=== PATIENT | female | born 1955 | race Caucasian/White ===

== ENCOUNTER 2016-11-12 22:26 | Inpatient (IN) ==
--- NOTE | 2016-11-12 23:56 | Emergency Department Note ---
Disposition Clinical Impression: GIB (gastrointestinal bleeding) Disposition: Admitted As Inpatient Condition: Good General Adult HPI - General Chief complaint: ED Nausea/Vomiting/Diarrhea Stated complaint: vomiting blood, bloody diarrhea Time Seen by Provider: 11/12/16 23:12 Source: patient Limitations: no limitations - History of Present Illness Pain Scale: 0 - Related Data Allergies Allergy/AdvReac Type Severity Reaction Status Date / Time No Known Allergies Allergy Verified 11/12/16 22:32 Past Medical History - Past Medical History Medical history: Reports: no medical history Psychiatric history: Reports: no psych history - Social History Smoking Status: Never smoker Smokeless Tobacco Status: No Alcohol use: Reports: none Drug use: Reports: none Physical Exam - General Limitations: no limitations General appearance: alert, in no apparent distress Course Vital Signs Temperature 0 F L 11/12/16 22:33 Pulse Rate 91 11/12/16 22:33 Respiratory Rate 16 11/12/16 22:33 Blood Pressure 125/71 11/12/16 22:33 O2 Sat by Pulse Oximetry 98 11/12/16 22:33 Temperature 97.8 F 11/13/16 04:19 Pulse Rate 87 11/13/16 04:19 Respiratory Rate 16 11/13/16 04:19 Blood Pressure 111/62 11/13/16 04:19 O2 Sat by Pulse Oximetry 96 11/13/16 04:46 Oxygen Delivery Oxygen Delivery Room Air Medical Decision Making - Lab Data Result diagrams: 11/13/16 05:25 11/13/16 00:04 Lab Results 11/13/16 11/13/16 11/13/16 Range/Units 00:04 00:04 00:04 WBC 8.4 (4.3-11.1) K/mcL RBC 5.66 H (3.82-4.97) M/mcL Hgb 14.7 (11.5-15.4) g/dL Hct 45.0 H (35.3-44.9) % MCV 79.5 L (83.0-100.0) fL MCH 26.0 L (28.0-33.3) pg MCHC 32.7 (31.6-35.5) g/dL RDW 15.3 H (11.5-14.5) % Plt Count 210 (140-400) K/mcL MPV 10.4 (9.4-12.4) fL Immature Gran % 0.2 (0-4) % Seg Neutrophils % 90.7 % Lymphocytes % 3.8 % Monocytes % 3.5 % Eosinophils % 1.7 % Basophils % 0.1 % Neutrophils # 7.6 (1.6-8.9) K/mcL Lymphocytes # 0.3 L (0.6-4.6) K/mcL Monocytes # 0.3 (0.0-1.3) K/mcL Eosinophils # 0.1 (0.0-0.6) K/mcL Basophils # 0.0 (0.0-0.2) K/mcL Immature Plt Fraction 2.6 (1.1-6.1) % PT 11.7 (9.4-12.1) Seconds INR 1.1 APTT 26.6 (26.0-36.0) Seconds Sodium 143 (136-145) mEq/L Potassium 4.0 (3.5-4.5) mEq/L Chloride 110 H (98-109) mEq/L Carbon Dioxide 22 (19-29) mEq/L BUN 20 (7-20) mg/dL Creatinine 0.75 (0.57-1.11) mg/dL Est GFR ( Amer) > 60 (> 60) Est GFR (Non-Af Amer) > 60 (> 60) BUN/Creatinine Ratio 27 H (6-26) Glucose 145 H (70-99) mg/dL Calculated Osmolality 301 H (280-300) Calcium 9.1 (8.6-10.8) mg/dL Troponin I (0-0.03) ng/mL Blood Type Antibody Screen 11/13/16 11/13/16 Range/Units 00:04 00:04 WBC (4.3-11.1) K/mcL RBC (3.82-4.97) M/mcL Hgb (11.5-15.4) g/dL Hct (35.3-44.9) % MCV (83.0-100.0) fL MCH (28.0-33.3) pg MCHC (31.6-35.5) g/dL RDW (11.5-14.5) % Plt Count (140-400) K/mcL MPV (9.4-12.4) fL Immature Gran % (0-4) % Seg Neutrophils % % Lymphocytes % % Monocytes % % Eosinophils % % Basophils % % Neutrophils # (1.6-8.9) K/mcL Lymphocytes # (0.6-4.6) K/mcL Monocytes # (0.0-1.3) K/mcL Eosinophils # (0.0-0.6) K/mcL Basophils # (0.0-0.2) K/mcL Immature Plt Fraction (1.1-6.1) % PT (9.4-12.1) Seconds INR APTT (26.0-36.0) Seconds Sodium (136-145) mEq/L Potassium (3.5-4.5) mEq/L Chloride (98-109) mEq/L Carbon Dioxide (19-29) mEq/L BUN (7-20) mg/dL Creatinine (0.57-1.11) mg/dL Est GFR ( Amer) (> 60) Est GFR (Non-Af Amer) (> 60) BUN/Creatinine Ratio (6-26) Glucose (70-99) mg/dL Calculated Osmolality (280-300) Calcium (8.6-10.8) mg/dL Troponin I 0.00 (0-0.03) ng/mL Blood Type O POSITIVE Antibody Screen NEGATIVE Attestation Statement - Attestation Attestation: I examined this patient and my medical decision-making was reviewed with the SIGNAL WIRER/PA/Advanced Practice Nurse/Resident Physician. I agree with the documented findings, disposition and treatment plan as described except to the extent set forth below. [id number] time provided She complains of nausea, vomiting, hematemesis. She appears pale on exam but in no acute distress. Patient seen and evaluated in conjunction with the resident physician
[2016-11-13 00:12] LABS: Basophils % 0.1 %; Eosinophils # 0.1 K/mcL (0.0-0.6); Eosinophils % 1.7 %; Hemoglobin 14.7 g/dL (11.5-15.4); Immature Granulocytes % 0.2 % (0-4); Immature Platelets 2.6 % (1.1-6.1); Lymphocytes # 0.3 K/mcL (0.6-4.6); Lymphocytes % 3.8 %; Mean Corpuscular HGB Conc 32.7 g/dL (31.6-35.5); Mean Corpuscular Volume 79.5 fL (83.0-100.0); Mean Platelet Volume 10.4 fL (9.4-12.4); Monocytes # 0.3 K/mcL (0.0-1.3); Monocytes % 3.5 %; Neutrophils # 7.6 K/mcL (1.6-8.9); Platelet Count 210 K/mcL (140-400); Red Blood Count 5.66 M/mcL (3.82-4.97); Red Cell Distribution Width 15.3 % (11.5-14.5); Segmented Neutrophils % 90.7 %
--- NOTE | 2016-11-13 00:17 | Emergency Department Note ---
Disposition Clinical Impression: GIB (gastrointestinal bleeding) Qualifiers: GI bleed type/associated pathology: unspecified gastrointestinal hemorrhage type Qualified Code(s): K92.2 - Gastrointestinal hemorrhage, unspecified Disposition: Admitted As Inpatient Condition: Good Referrals: NO,PCP [Non-Partnered Physician] - Forms: ED Satisfaction Letter Nausea/Vomiting/Diarrhea HPI - General Chief complaint: ED Nausea/Vomiting/Diarrhea Stated complaint: vomiting blood, bloody diarrhea Time Seen by Provider: 11/12/16 23:12 Source: patient Limitations: no limitations - History of Present Illness HPI Narrative: 61-year-old female who is otherwise healthy and takes a baby aspirin daily presents emergency Department with a chief complaint of hematemesis. She reports around 5 PM she felt nauseated, vomited 2 or 3 times and then she had 2 episodes of emesis with blood in it. She states in between events she has no nausea. She denies any pain any time. She also reports some thin stool that appears slightly red. No history of GI bleed in the past. No history of gallbladder disease. She does not drink alcohol. She takes no anticoagulants other than aspirin. Currently he states he feels well and has no pain. She denies any associated chest pain, diaphoresis or shortness of breath. Denies any cough. Denies any recent illness. Denies any recent injury. - Related Data Allergies Allergy/AdvReac Type Severity Reaction Status Date / Time No Known Allergies Allergy Verified 11/12/16 22:32 All systems ED: reviewed and negative except as stated. Constitutional: Denies: fever, chills Cardiovascular: Denies: chest pain, dyspnea on exertion Respiratory: Denies: cough, dyspnea Gastrointestinal: Reports: nausea, vomiting, hematochezia. Denies: abdominal pain, diarrhea Genitourinary: Denies: dysuria Musculoskeletal: Denies: back pain Integumentary: Denies: rash Neurological: Denies: headache, weakness, numbness Endocrine: Denies: fatigue Past Medical History - Past Medical History Medical history: Reports: no medical history Psychiatric history: Reports: no psych history - Social History Smoking Status: Never smoker Smokeless Tobacco Status: No Alcohol use: Reports: none Drug use: Reports: none Physical Exam General: Appears well, alert and oriented x 3 Cardiovascular: Regular rate and rhythm. S1, S2. No murmurs, rubs or gallops. Respiratory: Breath sounds clear bilaterally. No wheezing, rales or rhonchi. No resp distress Abdomen: Abdomen is completely soft without any areas of tenderness. There is no guarding, rebound or rigidity. No overlying bruising or signs of injury. Normal bowel sounds. No palpable organomegaly. Negative Hoffman's. No epigastric tenderness Eyes: Conjunctivae are clear without scleral icterus HENT: No blood in the oropharynx, No oral mucosal lesions. Moist mucous membranes Neuro: Alert and oriented 3, no motor sensory deficits Musculoskeletal: No joint tenderness or swelling Skin: No lesions. No diaphoresis. Normal turgor. Normal color Psych: Appropriate - General Limitations: no limitations General appearance: alert, in no apparent distress Course Course Narrative: Presents with hematemesis and blood per rectum. She denies any pain. On exam she has no pain with stable vital signs. She takes baby aspirin but no other medical problems or anticoagulants. Patient had a bowel movement in a hat and it was thick, bright red and heme positive. With her also having hematemesis my concern is for a brisk upper GI bleed. She is not anemic but my concern is this is acute in onset and her next hemoglobin will be lower. With concern for brisk upper GI bleed and do not feel that discharge home with gastroenterology follow-up is appropriate and patient will require serial hemoglobins, serial abdominal examinations and reevaluation. I discussed this with the on-call hospitalist, Dr. Chen who accept for admission. Vital Signs Temperature 0 F L 11/12/16 22:33 Pulse Rate 91 11/12/16 22:33 Respiratory Rate 16 11/12/16 22:33 Blood Pressure 125/71 11/12/16 22:33 O2 Sat by Pulse Oximetry 98 11/12/16 22:33 Temperature 0 F L 11/12/16 22:33 Pulse Rate 91 11/12/16 22:33 Respiratory Rate 16 11/12/16 22:33 Blood Pressure 125/71 11/12/16 22:33 O2 Sat by Pulse Oximetry 98 11/12/16 22:33 Oxygen Delivery Oxygen Delivery Room Air Nausea/Vomiting/Diarrhea - Lab Data Result diagrams: 11/13/16 00:04 11/13/16 00:04 Lab Results 11/13/16 11/13/16 11/13/16 Range/Units 00:04 00:04 00:04 WBC 8.4 (4.3-11.1) K/mcL RBC 5.66 H (3.82-4.97) M/mcL Hgb 14.7 (11.5-15.4) g/dL Hct 45.0 H (35.3-44.9) % MCV 79.5 L (83.0-100.0) fL MCH 26.0 L (28.0-33.3) pg MCHC 32.7 (31.6-35.5) g/dL RDW 15.3 H (11.5-14.5) % Plt Count 210 (140-400) K/mcL MPV 10.4 (9.4-12.4) fL Immature Gran % 0.2 (0-4) % Seg Neutrophils % 90.7 % Lymphocytes % 3.8 % Monocytes % 3.5 % Eosinophils % 1.7 % Basophils % 0.1 % Neutrophils # 7.6 (1.6-8.9) K/mcL Lymphocytes # 0.3 L (0.6-4.6) K/mcL Monocytes # 0.3 (0.0-1.3) K/mcL Eosinophils # 0.1 (0.0-0.6) K/mcL Basophils # 0.0 (0.0-0.2) K/mcL Immature Plt Fraction 2.6 (1.1-6.1) % PT 11.7 (9.4-12.1) Seconds INR 1.1 APTT 26.6 (26.0-36.0) Seconds Sodium 143 (136-145) mEq/L Potassium 4.0 (3.5-4.5) mEq/L Chloride 110 H (98-109) mEq/L Carbon Dioxide 22 (19-29) mEq/L BUN 20 (7-20) mg/dL Creatinine 0.75 (0.57-1.11) mg/dL Est GFR ( Amer) > 60 (> 60) Est GFR (Non-Af Amer) > 60 (> 60) BUN/Creatinine Ratio 27 H (6-26) Glucose 145 H (70-99) mg/dL Calculated Osmolality 301 H (280-300) Calcium 9.1 (8.6-10.8) mg/dL Troponin I (0-0.03) ng/mL Blood Type Antibody Screen 11/13/16 11/13/16 Range/Units 00:04 00:04 WBC (4.3-11.1) K/mcL RBC (3.82-4.97) M/mcL Hgb (11.5-15.4) g/dL Hct (35.3-44.9) % MCV (83.0-100.0) fL MCH (28.0-33.3) pg MCHC (31.6-35.5) g/dL RDW (11.5-14.5) % Plt Count (140-400) K/mcL MPV (9.4-12.4) fL Immature Gran % (0-4) % Seg Neutrophils % % Lymphocytes % % Monocytes % % Eosinophils % % Basophils % % Neutrophils # (1.6-8.9) K/mcL Lymphocytes # (0.6-4.6) K/mcL Monocytes # (0.0-1.3) K/mcL Eosinophils # (0.0-0.6) K/mcL Basophils # (0.0-0.2) K/mcL Immature Plt Fraction (1.1-6.1) % PT (9.4-12.1) Seconds INR APTT (26.0-36.0) Seconds Sodium (136-145) mEq/L Potassium (3.5-4.5) mEq/L Chloride (98-109) mEq/L Carbon Dioxide (19-29) mEq/L BUN (7-20) mg/dL Creatinine (0.57-1.11) mg/dL Est GFR ( Amer) (> 60) Est GFR (Non-Af Amer) (> 60) BUN/Creatinine Ratio (6-26) Glucose (70-99) mg/dL Calculated Osmolality (280-300) Calcium (8.6-10.8) mg/dL Troponin I 0.00 (0-0.03) ng/mL Blood Type O POSITIVE Antibody Screen NEGATIVE - EKG Data EKG results narrative: EKG shows a sinus rhythm with a rate of 83 beats a minute. No ST elevation or depression. AR, QRS, QT interval with a normalized. No ischemic T-wave changes.
[2016-11-13 00:23] LABS: INR 1.1; Prothrombin Time 11.7 Seconds (9.4-12.1)
[2016-11-13 00:26] LABS: Activated Partial Thrombo Time 26.6 Seconds (26.0-36.0)
[2016-11-13 00:27] LABS: BUN/Creatinine Ratio 27 (6-26); Blood Urea Nitrogen 20 mg/dL (7-20); Calcium 9.1 mg/dL (8.6-10.8); Carbon Dioxide 22 mEq/L (19-29); Chloride 110 mEq/L (98-109); Glucose 145 mg/dL (70-99); Osmolality,Calculated 301 (280-300); Sodium 143 mEq/L (136-145); eGFR For African Americans > 60 (> 60); eGFR For Non-African Americans > 60 (> 60)
[2016-11-13] MEDS ORDERED: Pantoprazole 40 MG VIAL IVP ONE (01:25)
[2016-11-13] MEDS: Pantoprazole 40 MG in 0.9 % Sodium Chloride Mini Bag 100 ML IVC SCH ×3 (02:03→13:21)
[2016-11-13] MEDS ORDERED: Ondansetron 4 MG/2 ML VIAL IVP PRN (05:19)
[2016-11-13] MEDS ORDERED: 0.9 % Sodium Chloride 1,000 ML IVC SCH (05:30)
--- NOTE | 2016-11-13 05:37 | Internal Med History&Physical ---
<LukeOrlando deras - Last Filed: 11/13/16 19:42> Date of Encounter: 11/13/16 Time of Encounter: 05:23 Assessment and Plan (1) GIB (gastrointestinal bleeding) Current visit: Yes Status: Acute Patient presents with hematemesis and hematochezia. Given the symptoms there is a concern for a brisk GI bleed. Patient is otherwise stable. Patient does take a daily baby aspirin but has no other risk factors including history of ulcers, liver disease, NSAID use. Hemoglobin is normal on presentation however she does have a decreased MCV, will recheck CBC and follow every 6 hours. Protonix drip has been initiated, gastroenterology is consulted by the emergency department. Qualifiers: GI bleed type/associated pathology: unspecified gastrointestinal hemorrhage type Qualified Code(s): K92.2 - Gastrointestinal hemorrhage, unspecified (2) DVT prophylaxis Current visit: Yes Status: Acute EPCDs Internal Medicine - H&P: HPI Chief complaint: Hematemesis/hematochezia History of present illness: Ms. Veliz is a 61 year old female with no significant medical history presents with hematemesis and hematochezia. Patient states that around 5 PM this afternoon she felt nauseous and then had 2-3 episodes of vomiting bright red blood. She also reports several bowel movements with bright red blood. She also had 1 bowel movement in the emergency department at approximately 1 AM that was bright red blood. She states she has never had anything like this before. She denies any abdominal pain, fever, chills, chest pain, shortness of breath, dysuria, hematuria. Patient reports last eating at 1 PM and had no difficulties or abnormal feelings at this time. Past Med Surg Social Fam HX - Past Medical History Medical history: no medical history Psychiatric history: no psych history - Past Surgical History Surgical History: no surgical history - Social History Smoking Status: Never smoker Smokeless Tobacco Status: No Alcohol use: none Drug use: none - Family History Mother Name: Aviva Mcgee Age: 84 Living Status: Still Living Hx Family Cardiac Disorders: Yes (Pace Maker) Hx Family Respiratory Disorders: Yes (COPD) Hx Family Cancer: No Hx Family GI Disorders: No Hx Family Genitourinary Disorders: No Hx Family Endocrine Disorder: Yes (Boarderline DM) Hx Family Musculoskeletal Disorders: No Hx Family Neuromuscular Disorders: No Hx Family Neurologic Disorders: No Hx Family HEENT Disorders: Yes ("Throat problems") Hx Family Autoimmune Disorders: No Hx Family Reproductive Disorders: Yes (Hyster) Hx Family Psychosocial Disorders: No Hx Family Medical Disorders: No Internal Medicine - H&P: Meds Aspirin 81 mg PO DAILY 11/13/16 [History] Ibuprofen/Diphenhydramine Cit [Advil Pm Caplet] 1 tab PO HS PRN 11/13/16 [ History] Naproxen Sod/Diphenhydram HCl [Aleve Pm Caplet] 1 tab PO HS PRN 11/13/16 [ History] Allergies No Known Allergies Allergy (Verified 11/12/16 22:32) All Systems PM: A 10-system review of systems was performed and is negative for pertinent findings except as documented above in the HPI. - Constitutional Constitutional: no chills, no fever(s), no weakness - EENT Eyes: no blurry vision, no change in vision Nose, mouth and throat: no sinus pain, no sinus pressure, no sore throat - Cardiovascular Cardiovascular ROS IM: no chest pain, no dyspnea, no edema, no lightheadedness, no syncope - Respiratory Respiratory: no cough, no hemoptysis, no chest congestion, no excessive phlegm production, no change in phlegm color - Gastrointestinal Gastrointestinal: hematemesis, hematochezia, no abdominal pain, no diarrhea, no melena, no nausea, no vomiting - Genitourinary Genitourinary: no hematuria - Musculoskeletal Musculoskeletal ROS IM: no numbness, no tingling - Integumentary Integumentary IM: no erythema, no new lesions - Neurological Neurological ROS: no confusion, no weakness - Endocrine Endocrine IM: no polydipsia, no polyphagia, no polyuria - Hematologic/Lymphatic Hematologic/Lymphatic: no easy bleeding, no easy bruising - Constitutional Vitals: Temp Pulse Resp BP Pulse Ox 97.8 F 87 16 111/62 96 11/13/16 04:19 11/13/16 04:19 11/13/16 04:19 11/13/16 04:19 11/13/16 04:19 General appearance: Present: A&O X 3, pleasant, no acute distress - Head Head exam: Present: atraumatic, normal inspection, normocephalic - Eye Eye exam: Present: EOMI, PERRL, conjuntiva pink - ENT ENT exam: Present: mucous membranes moist - Neck Neck exam general surgery: Present: supple. Absent: tenderness - Respiratory Respiratory exam: Present: CTAB. Absent: rales, rhonchi, wheezes - Cardiovascular Cardiovascular exam: Present: RRR. Absent: gallop, rubs, systolic murmur - GI/Abdominal GI/Abdominal exam: Present: normal bowel sounds. Absent: distended, soft, tenderness - Extremities Exam Extremities exam: Present: warm. Absent: pedal edema, tenderness - Neurological Exam Neurological exam: Present: alert, CN II-XII intact, oriented X3, no focal deficits Internal Med - H&P Results - Labs CBC & Chem 7: 11/13/16 16:52 11/13/16 00:04 <Valentín Chen - Last Filed: 11/13/16 21:23> Date of Encounter: 11/13/16 Internal Medicine - H&P: HPI History of present illness: Ms. Veliz is a 61 year old female All Systems PM: A 10-system review of systems was performed and is negative for pertinent findings except as documented above in the HPI. - Constitutional Vitals: Temp Pulse Resp BP Pulse Ox 99.2 F 90 16 133/75 95 11/13/16 19:16 11/13/16 19:16 11/13/16 19:16 11/13/16 19:16 11/13/16 19:16 Internal Med - H&P Results - Labs CBC & Chem 7: 11/13/16 16:52 11/13/16 00:04 Labs: Short CBC 11/13/16 11/13/16 11/13/16 Range/Units 05:25 10:50 16:52 WBC 6.6 (4.3-11.1) K/mcL Hgb 14.2 13.4 13.1 (11.5-15.4) g/dL Hct 44.2 41.1 40.2 (35.3-44.9) % Plt Count 222 (140-400) K/mcL Neutrophils # 6.1 (1.6-8.9) K/mcL - Attending Attestation I personally interviewed and examined this patient and my medical decision- making was reviewed with the Resident Physician. I agree with the documented findings, disposition and treatment plan as described.
[2016-11-13 06:16] LABS: Red Blood Count 5.54 M/mcL (3.82-4.97)
[2016-11-13 06:17] LABS: Basophils % 0.2 %; Eosinophils % 0.2 %; Hematocrit 44.2 % (35.3-44.9); Hemoglobin 14.2 g/dL (11.5-15.4); Immature Granulocytes % 0.5 % (0-4); Lymphocytes # 0.3 K/mcL (0.6-4.6); Lymphocytes % 4.6 %; Mean Corpuscular HGB Conc 32.1 g/dL (31.6-35.5); Mean Corpuscular Hemoglobin 25.6 pg (28.0-33.3); Mean Corpuscular Volume 79.8 fL (83.0-100.0); Mean Platelet Volume 10.7 fL (9.4-12.4); Monocytes # 0.2 K/mcL (0.0-1.3); Monocytes % 2.6 %; Neutrophils # 6.1 K/mcL (1.6-8.9); Platelet Count 222 K/mcL (140-400); Red Cell Distribution Width 15.2 % (11.5-14.5); Segmented Neutrophils % 91.9 %
[2016-11-13 06:41] LABS: Platelet Estimate Normal (Normal)
[2016-11-13] MEDS ORDERED: *HR* Midazolam HCl 5 MG/5 ML VIAL IVP ONE (09:39)
[2016-11-13] MEDS ORDERED: *HR* FentaNYL (PF) 100 MCG/2 ML VIAL ONE (09:40)
[2016-11-13] MEDS ORDERED: 0.9 % Sodium Chloride 500 ML IVC SCH (09:45)
[2016-11-13] MEDS ORDERED: *HR* Promethazine 25 MG/ML VIAL ONE (09:55)
[2016-11-13] MEDS: *HR* FentaNYL (PF) 100 MCG/2 ML VIAL IVP PRN ×3 (10:26→10:28)
[2016-11-13] MEDS: *HR* Midazolam HCl 5 MG/5 ML VIAL IVP PRN ×3 (10:26→10:28)
[2016-11-13] MEDS ORDERED: Tetracaine/Benzocaine/Butamben 200MG/SPRAY (100SPY/BOT) MM ONE (10:43)
[2016-11-13] MEDS ORDERED: Simethicone 40 MG/0.6 ML MLS IR ONE (10:43)
[2016-11-13 11:03] LABS: Hematocrit 41.1 % (35.3-44.9); Hemoglobin 13.4 g/dL (11.5-15.4)
--- NOTE | 2016-11-13 12:21 | Gastroenterology Consult Note ---
<Orlando Alejandro Dorcas - Last Filed: 11/13/16 12:19> Date of Encounter: 11/13/16 Time of Encounter: 10:00 - Assessment and plan (1) GIB (gastrointestinal bleeding) Current Visit: Yes Status: Acute Assessment and plan: Likely secondary to NSAID usage. Pt has been using Aleve PM QHS. Pt with hematemesis and hematochezia. Hgb stable at 14.2 this AM. Plan for EGD today to r/o esophagitis, gastritis, duodenitis, PUD, MW tear, or AVM. Will consider colonoscopy as she has never had colonoscopy completed. Qualifiers: GI bleed type/associated pathology: unspecified gastrointestinal hemorrhage type Qualified Code(s): K92.2 - Gastrointestinal hemorrhage, unspecified - Time Spent With Patient Total time spent is greater than 50% in coordination of care (as documented) at patient's floor/unit and/or counseling patient: GI History of Present Illness - Data of Consult Patient: new to practice Consult date: 11/13/16 Requesting Physician: Juancho Urban MD - Consult Narrative Reason for consult: GI Bleed History of present illness: Ms. Veliz is a 61 year old female with with no significant medical history who presented to the ED with hematemesis and hematochezia. She reports around 5 PM she began to feel nauseous, and had 2 episodes of hematemesis. She also had 1 bowel movement in the ED at approximately 1 AM that was bright red blood. She denies nausea between episodes of vomiting. She admits to taking Aleve QHS. She denies fever, chills, chest pain, SOB, abdominal pain. No history of gallbladder disease. She does not drink alcohol. She takes no anticoagulants other than ASA. Procedures: None NSAIDs: ASA, Aleve, Advil Anticoagulation: None Past Med Surg Social Fam HX - Past Medical History Medical history: no medical history Psychiatric history: no psych history - Past Surgical History Surgical History: no surgical history - Social History Smoking Status: Never smoker Smokeless Tobacco Status: No Alcohol use: none Drug use: none - Family History Mother Name: Aviva Mcgee Age: 84 Living Status: Still Living Hx Family Cardiac Disorders: Yes (Pace Maker) Hx Family Respiratory Disorders: Yes (COPD) Hx Family Cancer: No Hx Family GI Disorders: No Hx Family Genitourinary Disorders: No Hx Family Endocrine Disorder: Yes (Boarderline DM) Hx Family Musculoskeletal Disorders: No Hx Family Neuromuscular Disorders: No Hx Family Neurologic Disorders: No Hx Family HEENT Disorders: Yes ("Throat problems") Hx Family Autoimmune Disorders: No Hx Family Reproductive Disorders: Yes (Hyster) Hx Family Psychosocial Disorders: No Hx Family Medical Disorders: No - Gastrointestinal Gastrointestinal: Present: as per HPI - Constitutional Constitutional: as per HPI - EENT Eyes: as per HPI Ears: Present: as per HPI Nose, mouth and throat: Present: as per HPI - Cardiovascular Cardiovascular ROS: Present: as per HPI - Respiratory Respiratory IM: Present: as per HPI - Genitourinary Genitourinary: Absent: change in color, Urinary frequency - Neurological ROS Neurological GI: Present: as per HPI - Hematologic/Lymphatic Hematologic/Lymphatic pediatric: Present: as per HPI - Musculoskeletal Musculoskeletal ROS GI: Present: as per HPI - Integumentary Integumentary GI: Present: as per HPI - Psychiatric ROS Psychiatric GI: Present: as per HPI - Endocrine Endocrine IM: Present: as per HPI - Constitutional Vitals: Temp Pulse Resp BP Pulse Ox 98.0 F 84 16 129/76 95 11/13/16 12:14 11/13/16 12:14 11/13/16 12:14 11/13/16 12:14 11/13/16 12:14 General appearance: Present: cooperative, A&O X 3, no acute distress, answers questions appropriately - Head Head exam: Present: atraumatic, normocephalic - Eye Eye exam: Present: normal appearance, sclera anicteric - ENT ENT exam: Present: mucous membranes dry - Neck Neck exam general surgery: Present: normal inspection, trachea midline - Respiratory Respiratory exam: Present: CTAB. Absent: rales, rhonchi, wheezes - Cardiovascular Cardiovascular exam: Present: RRR, +S1, +S2 - GI/Abdominal GI/Abdominal exam: Present: soft, no peritoneal signs. Absent: distended, firm , guarding, tenderness - Rectal Rectal exam: Present: deferred - Extremities Exam Extremities exam: Present: warm - Neurological Exam Neurological exam: Present: no focal deficits - Psychiatric Psychiatric exam: Present: normal affect, normal mood - Skin Skin exam: Present: dry, intact, normal color, warm Results - Labs CBC & Chem 7: 11/13/16 10:50 11/13/16 00:04 Labs: Last Result Calcium 9.1 mg/dL (8.6-10.8) 11/13/16 00:04 Troponin I 0.00 ng/mL (0-0.03) 11/13/16 00:04 Entire Visit Hgb 13.4 g/dL (11.5-15.4) 11/13/16 10:50 Hct 41.1 % (35.3-44.9) 11/13/16 10:50 PT 11.7 Seconds (9.4-12.1) 11/13/16 00:04 - ABG ABG results: PT/INR, D-dimer PT 11.7 Seconds (9.4-12.1) 11/13/16 00:04 Consult Discharge Plan - Plan Referrals: Fletcher Vega MD [Primary Care Provider] - <Emily Barryed - Last Filed: 11/13/16 18:36> Date of Encounter: 11/13/16 Time of Encounter: 10:00 - Time Spent With Patient Total time spent is greater than 50% in coordination of care (as documented) at patient's floor/unit and/or counseling patient: GI History of Present Illness - Data of Consult Requesting Physician: Juancho Urban MD - Consult Narrative History of present illness: Ms. Veliz is a 61 year old female - Constitutional Vitals: Temp Pulse Resp BP Pulse Ox 98.0 F 97 16 128/79 93 11/13/16 12:14 11/13/16 15:34 11/13/16 15:34 11/13/16 15:34 11/13/16 15:34 Results - Labs CBC & Chem 7: 11/13/16 16:52 11/13/16 00:04 Labs: Last Result Calcium 9.1 mg/dL (8.6-10.8) 11/13/16 00:04 Troponin I 0.00 ng/mL (0-0.03) 11/13/16 00:04 Entire Visit Hgb 13.1 g/dL (11.5-15.4) 11/13/16 16:52 Hct 40.2 % (35.3-44.9) 11/13/16 16:52 PT 11.7 Seconds (9.4-12.1) 11/13/16 00:04 - ABG ABG results: PT/INR, D-dimer PT 11.7 Seconds (9.4-12.1) 11/13/16 00:04 - Attending Attestation I examined this patient and my medical decision-making was reviewed with the FINANCE ASSOCIATE/PA/Advanced Practice Nurse/Resident Physician. I agree with the documented findings, disposition and treatment plan as described except to the extent set forth below.
[2016-11-13 17:31] LABS: Hematocrit 40.2 % (35.3-44.9); Hemoglobin 13.1 g/dL (11.5-15.4)
--- NOTE | 2016-11-13 17:33 | Electrocardiograph Report ---
[place] [id number] Test Date: 2016-11-13 Pat Name: Kim Veliz Department: 104 Room: 3B Gender: F Academic Tutor: ROBERT : 1955 Requested By: Conner Morley Order Number: [id number] Reading MD: Veronica Huff Measurements Intervals [place] Rate: 83 P: 53 [place]: 159 QRS: 23 QRSD: 76 T: 36 QT: 356 QTc: 396 Interpretive Statements SINUS RHYTHM LOW QRS VOLTAGE IN PRECORDIAL LEADS Electronically Signed On 11-13-2016 17:31:38 EDT by Veronica Huff
--- NOTE | 2016-11-13 18:17 | Event Note ---
Date of Encounter: 11/13/16 Time of Encounter: 09:00 Patient presented to the hospital with nausea vomiting and hematemesis. She also had some diarrhea and rectal bleeding. She states that she went to a baby shower yesterday and she ate some food and there. Her mother was at the same event and has diarrhea. She was concerned of food poisoning. She states that she passes diarrhea every time she stands up but her vomiting has stopped with IV nausea medication. On exam she is in no acute distress. Abdomen is soft and nontender. Plan: Nothing by mouth. IV fluids. IV Protonix. GI consult. We will send a GI panel to evaluate for viral versus bacterial gastroenteritis given sick contacts.
[2016-11-13] MEDS ORDERED: SODIUM CHLORIDE/NAHCO3/KCL/PEG 4,000 ML SOLN.RECON PO ONE (18:45)
[2016-11-13 23:28] LABS: Hematocrit 39.1 % (35.3-44.9); Hemoglobin 12.7 g/dL (11.5-15.4)
[2016-11-14 06:50] LABS: INR 1.1; Prothrombin Time 12.4 Seconds (9.4-12.1)
[2016-11-14 06:52] LABS: Basophils % 0.6 %; Eosinophils # 0.1 K/mcL (0.0-0.6); Eosinophils % 0.9 %; Hematocrit 39.7 % (35.3-44.9); Hemoglobin 12.7 g/dL (11.5-15.4); Immature Granulocytes % 0.2 % (0-4); Lymphocytes # 1.3 K/mcL (0.6-4.6); Mean Corpuscular Hemoglobin 25.8 pg (28.0-33.3); Mean Corpuscular Volume 80.5 fL (83.0-100.0); Mean Platelet Volume 10.8 fL (9.4-12.4); Monocytes # 0.5 K/mcL (0.0-1.3); Monocytes % 8.7 %; Neutrophils # 3.5 K/mcL (1.6-8.9); Platelet Count 192 K/mcL (140-400); Red Blood Count 4.93 M/mcL (3.82-4.97); Red Cell Distribution Width 15.4 % (11.5-14.5); Segmented Neutrophils % 65.6 %
[2016-11-14 07:10] LABS: Alanine Aminotransferase 13 Units/L (0-55); Albumin 3.1 g/dL (3.5-5.0); Albumin/Globulin Ratio 1.2 (1.1-2.2); Alkaline Phosphatase 66 Units/L (38-126); Aspartate Amino Transferase 12 Units/L (5-34); BUN/Creatinine Ratio 18 (6-26); Bilirubin,Total 0.3 mg/dL (0.2-1.2); Blood Urea Nitrogen 12 mg/dL (7-20); Calcium 8.4 mg/dL (8.6-10.8); Carbon Dioxide 26 mEq/L (19-29); Chloride 106 mEq/L (98-109); Globulin 2.6 g/dL (2.4-3.5); Glucose 90 mg/dL (70-99); Osmolality,Calculated 287 (280-300); Potassium 3.4 mEq/L (3.5-4.5); Sodium 139 mEq/L (136-145); Total Protein 5.7 g/dL (6.0-8.3); eGFR For African Americans > 60 (> 60); eGFR For Non-African Americans > 60 (> 60)
[2016-11-14 08:04] LABS: Platelet Estimate Normal (Normal)
[2016-11-14] MEDS: Pantoprazole 40 MG VIAL IVP SCH (09:09)
[2016-11-14] MEDS ORDERED: Polyethylene Glycol 3350 255 GM POWDER PO ONE (10:05)
[2016-11-14 11:05] LABS: Adenovirus F 40/41 PCR Not detected (Not detect); Astrovirus PCR Not detected (Not detect); C.difficile Toxin A/B by PCR Not detected (Not detect); Campylobacter by PCR Not detected (Not detect); Cryptosporidium by PCR Not detected (Not detect); Cyclospora cayetanensis PCR Not detected (Not detect); E. coli O157 by PCR Not detected (Not detect); Entamoeba histolytica PCR Not detected (Not detect); Enteroaggregative E.coli(EAEC) Not detected (Not detect); Enteropathogenic E.coli(EPEC) Not detected (Not detect); Enterotoxigenic E.coli (ETEC) Not detected (Not detect); Giardia lamblia PCR Not detected (Not detect); Norovirus GI/GII PCR ***DETECTED*** (Not detect); Plesiomonas shigelloides PCR Not detected (Not detect); Rotavirus A PCR Not detected (Not detect); Salmonella PCR Not detected (Not detect); Sapovirus PCR Not detected (Not detect); Shig/EnteroinvasiveE coli EIEC Not detected (Not detect); Shigalike tox-prod E coli STEC Not detected (Not detect); Vibrio PCR Not detected (Not detect); Vibrio cholerae PCR Not detected (Not detect); Yersinia enterocolitica PCR Not detected (Not detect)
[2016-11-14] MEDS ORDERED: *HR* Midazolam HCl 5 MG/5 ML VIAL IVP ONE (17:43)
[2016-11-14] MEDS ORDERED: *HR* FentaNYL (PF) 100 MCG/2 ML VIAL ONE (17:43)
[2016-11-14] MEDS ORDERED: 0.9 % Sodium Chloride 1,000 ML IVC SCH (17:45)
[2016-11-14] MEDS ORDERED: Simethicone 40 MG/0.6 ML MLS IR ONE (17:45)
[2016-11-14] MEDS: *HR* FentaNYL (PF) 100 MCG/2 ML VIAL IVP PRN ×2 (17:54→17:55)
[2016-11-14] MEDS: *HR* Midazolam HCl 5 MG/5 ML VIAL IVP PRN ×2 (17:54→17:55)
[2016-11-15 04:08] LABS: Basophils % 0.5 %; Eosinophils # 0.3 K/mcL (0.0-0.6); Eosinophils % 4.2 %; Hematocrit 39.4 % (35.3-44.9); Hemoglobin 12.7 g/dL (11.5-15.4); Immature Granulocytes % 0.3 % (0-4); Lymphocytes # 1.7 K/mcL (0.6-4.6); Lymphocytes % 27.8 %; Mean Corpuscular HGB Conc 32.2 g/dL (31.6-35.5); Mean Corpuscular Hemoglobin 25.6 pg (28.0-33.3); Mean Corpuscular Volume 79.3 fL (83.0-100.0); Mean Platelet Volume 10.2 fL (9.4-12.4); Monocytes # 0.6 K/mcL (0.0-1.3); Monocytes % 9.8 %; Neutrophils # 3.5 K/mcL (1.6-8.9); Platelet Count 177 K/mcL (140-400); Red Blood Count 4.97 M/mcL (3.82-4.97); Red Cell Distribution Width 15.1 % (11.5-14.5); Segmented Neutrophils % 57.4 %
[2016-11-15 04:18] LABS: BUN/Creatinine Ratio 14 (6-26); Blood Urea Nitrogen 9 mg/dL (7-20); Calcium 8.4 mg/dL (8.6-10.8); Carbon Dioxide 23 mEq/L (19-29); Chloride 107 mEq/L (98-109); Glucose 81 mg/dL (70-99); Osmolality,Calculated 288 (280-300); Sodium 140 mEq/L (136-145); eGFR For African Americans > 60 (> 60); eGFR For Non-African Americans > 60 (> 60)
[2016-11-15] MEDS ORDERED: Potassium Chloride Elixir 20 MEQ/15 ML UDC PO ONE (07:27)
--- NOTE | 2016-11-15 07:56 | Discharge Summary ---
Date of Encounter: 11/15/16 Time of Encounter: 07:45 - Discharge Diagnosis (1) GIB (gastrointestinal bleeding) Priority: Primary Status: Acute Comments: Pt presented with hematemesis and hematochezia 2 days ago after attending a baby shower. She and her [id number] and mother all had the same symptoms, however, she is the only one who had bleeding. N/V/D resolved yesterday. Pt was kept for further testing. Pelvic grade a esophagitis with bleeding. A clip was placed. There is no bleeding at the end of the procedure. There is localized mild inflammation characterized by congestion and erosions. Biopsies were taken. Pathology results are pending. She says that she feels better today. H and H have remained stable and WNL. Vital signs are stable. Abd is soft and non-tender, no masses or hernias noted. BS present. Qualifiers: GI bleed type/associated pathology: unspecified gastrointestinal hemorrhage type Qualified Code(s): K92.2 - Gastrointestinal hemorrhage, unspecified (2) Norovirus GI and GII detected Priority: Secondary Status: Acute Comments: Detected in stool culture. Pt is aware of findings. (3) Diverticulitis large intestine Priority: Secondary Status: Acute Comments: Pt had colonoscopy yesterday. Impression: Ileitis that was biopsied. Diverticulosis in the sigmoid colon. Localized diverticulitis that was also biopsided. Recommend Cipro and Flagyl for 7 days and to await pathology results. First doses of medications given this a.m prior to discharge. Pt is aware of findings and we discussed treatment. Pt denies pain or cramping. Qualifiers: Diverticulitis bleeding: without bleeding Diverticulitis complication: without perforation or abscess Qualified Code(s): K57.32 - Diverticulitis of large intestine without perforation or abscess without bleeding (4) Hypokalemia Priority: Secondary Status: Acute Comments: Treated with KCl prior to discharge. Encouraged hydration and eating foods high in potassium at home. (5) DVT prophylaxis Priority: Secondary Status: Acute Comments: Pt has EPCD ordered and has been ambulatory. - Discharge Medications Prescriptions: Ciprofloxacin [Cipro] 500 mg PO BID #14 tablet L. Acidophilus/Bifid. Animalis [Probiotic 5 Billion Cell Cap] 1 each PO DAILY # 30 cap.sprink metroNIDAZOLE [Flagyl] 500 mg PO TID #21 tablet Omeprazole 20 mg PO DAILY #30 tablet. Home Medications: Aspirin 81 mg PO DAILY 11/13/16 [History] Ciprofloxacin [Cipro] 500 mg PO BID #14 tablet 11/15/16 [Rx] L. Acidophilus/Bifid. Animalis [Probiotic 5 Billion Cell Cap] 1 each PO DAILY # 30 cap.sprink 11/15/16 [Rx] Omeprazole 20 mg PO DAILY #30 tablet. 11/15/16 [Rx] metroNIDAZOLE [Flagyl] 500 mg PO TID #21 tablet 11/15/16 [Rx] Allergies/Adverse Reactions: Allergies No Known Allergies Allergy (Verified 11/12/16 22:32) Date of admission: 11/13/16 03:21 Primary care physician: Fletcher Vega MD Discharging clinician: Swathi Nation Anticipated date of discharge: 11/15/16 - Patient Status Disposition: Home, Self-Care Functional capacity at discharge: independent ambulation Overall status at discharge: patient is back to baseline - Discharge Instructions Follow Up With: Fletcher Vega MD [Primary Care Provider] - Additional Instructions: Please start your new medications today. Resume your normal home medications with the exception of Aleve or other NSAIDS that cause stomach upset and bleeding. You had biopsies taken from both scopes that you had done. The results are pending and you will be notified of the results when they are available. Make sure that you drink plenty of fluids and increase your potassium intake for the next few days. Return to the ER as needed for any other problems or concerns, if you get diarrhea, cramps, chills, or fever, or for any other concerning symptoms. - Diet and Activity Activity: resume usual activities as tolerated Diet: advance to your usual diet Hospital course: Ms. Veliz is a 61 year old female with no significant medical history who presented to the emergency room 2 days ago with hematochezia and hematemesis for a few hours prior to arrival. She says that she attended a baby shower and she and her mother and [id number] all became ill afterwards. She states they are the only people who became ill. Patient was admitted for hydration and GI consult. She was placed on Protonix drip. Since admission the vomiting and diarrhea have stopped. She has not had any since day of admission. Her stool panel was positive for norOvirus G1 and G2 detected by PCR. Patient had an upper GI endoscopy that showed mucosal breaks less than 5 mm esophagitis with bleeding one clip was placed successfully and there is no bleeding at the end of the procedure. Localized mild inflammation and erosions in the prepyloric region of the stomach. Biopsies were taken. Patient will be placed on omeprazole 20 mg by mouth daily and told to avoid NSAIDs. Patient admitted to frequent use of Aleve PM to help her sleep at night. Colonoscopy was done yesterday that showed ileitis that was biopsied, diverticulosis in the sigmoid, localized diverticulitis that was also biopsied. Recommendation is by mouth Cipro and Flagyl for 7 days and await pathology results. Patient was given her initial dose of Cipro and Flagyl today. I discussed ongoing treatment with her discussed the possibility of C. difficile and or vaginal yeast infection. I told her to seek treatment if she started having diarrhea after the antibiotics. I will also give her prescriptions for the Cipro and Flagyl and a probiotic. Potassium this morning was 3.0. She will be given oral supplementation prior to discharge. We discussed increasing her potassium intake as well as increasing fluid intake for the next few days. Hemoglobin and hematocrit have remained stable throughout her visit. There is no anemia. She denies any hematemesis or hematochezia. She denies diarrhea or nausea. All other labs have remained stable, as well. Vital signs are within normal limits. Patient is stable and appropriate for discharge. - Time Spent with Patient Total time spent providing and/or coordinating discharge services: Less than 30 minutes - Constitutional Vitals: Temp Pulse Resp BP Pulse Ox 98.5 F 71 18 138/77 97 11/15/16 03:09 11/15/16 03:09 11/15/16 03:09 11/15/16 03:09 11/15/16 03:09 General appearance: Present: cooperative, A&O X 3, pleasant, no acute distress, answers questions appropriately - Head Head exam: Present: normal inspection - Eye Eye exam: Present: normal appearance, conjuntiva pink - Neck Neck exam general surgery: Present: normal inspection. Absent: lymphadenopathy , tenderness - Respiratory Respiratory exam: Present: CTAB. Absent: rales, rhonchi, wheezes - Cardiovascular Cardiovascular exam: Present: RRR, +S1, +S2. Absent: diastolic murmur, systolic murmur - GI/Abdominal GI/Abdominal exam: Present: normal bowel sounds, soft. Absent: distended, hepatomegaly, tenderness - Extremities Exam Extremities exam: Present: normal capillary refill, normal inspection, warm, radial pulses palpable and symetrical. Absent: tenderness - Neurological Exam Neurological exam: Present: alert, oriented X3, no focal deficits. Absent: facial droop, speech deficit
[2016-11-15 08:00] VITALS: BP 136/76
[2016-11-15] MEDS ORDERED: metroNIDAZOLE 500 MG TABLET PO SCH (09:00)
[2016-11-15] MEDS: Pantoprazole 40 MG VIAL IVP SCH (09:03)
== END 2016-11-15 10:00 | disposition home or self-care (01) | DRG 392 ==
LOC: EMEROO 22:26 → 3BNU 22:26 → SUATTDRO 11-13 03:21 → 3BNU 11-13 03:32
PROVIDERS: ADMIT Internal Medicine; ATTEND Internal Medicine
PROC: ENDOCBX (2016-11-14 15:00)